=== PATIENT | female | born 2000 | race Caucasian/White ===

== ENCOUNTER 2019-11-13 18:48 | Emergency (ER) | payer OTHER ==
[2019-11-13] MEDS ORDERED: ACETAMINOPHEN 500 MG TAB ONE (19:10)
[2019-11-13] MEDS ORDERED: METOCLOPRAMIDE INJ 10MG/2ML VIAL (J2765 PER 1) ONE (19:10)
[2019-12-29 02:30] LABS: BASO % 0.3 % (0.0-1.0); EOS % 0.1 % (0.0-3.0); HEMATOCRIT 45.4 % (36.0-47.0); LYMPH # 1.8 10^3/uL (1.5-5.0); MEAN CORPUSCULAR HEMOGLOBIN 27.7 pg (27.0-33.0); MEAN CORPUSCULAR VOLUME 83.8 fl (80.0-96.0); MONO # 0.3 10^3/uL (0.0-0.8); MONO % 4.5 % (0.0-5.0); NEUTROPHILS # 5.5 10^3/uL (1.5-8.5); PLATELET COUNT, AUTOMATED 254 10^3/uL (150-450); RED BLOOD COUNT 5.42 10^6/uL (4.00-5.40); WHITE BLOOD COUNT 7.6 10^3/uL (4.0-10.0)
[2020-02-06 12:56] LABS: BLOOD UREA NITROGEN 9 MG/DL (7-18); CALCIUM LEVEL 9.5 MG/DL (8.5-10.1); CARBON DIOXIDE LEVEL 26 MEQ/L (21-32); CHLORIDE LEVEL 104 MEQ/L (98-107); GLOMERULAR FILTRATION RATE > 60.0 (>60); GLUCOSE, FASTING 75 MG/DL (70-100); HCG, SERUM QUANTITATIVE 186573 MIU/ML; SODIUM LEVEL 138 MEQ/L (136-145)
== END 2019-11-13 21:20 | disposition home or self-care (01) ==
LOC: M ED 18:48
DX: O21.9 Vomiting of pregnancy, unspecified (principal); O26.891 Other specified pregnancy related conditions, first trimester; R10.2 Pelvic and perineal pain; Z3A.00 Weeks of gestation of pregnancy not specified; Z88.2 Allergy status to sulfonamides
CPT/HCPCS: 80048; 81001; 84702; 85025; 96374; 99284; J2765

== ENCOUNTER → 2020-02-03 | Outpatient (CLI) | payer OTHER ==
--- NOTE | 2020-02-03 13:40 | REP ---
INDICATION: ANATOMY. TECHNIQUE: Real-time sonographic evaluation of the gravid uterus performed. FINDINGS: There is a living intrauterine twin gestation, diamniotic dichorionic. Estimated gestational age is19 weeks 3 days, EDC 06/26/2020. Today's measurements indicate appropriate concordant growth. Closed cervical length is measured at 4.2 cm. Fetus a: Presentation: Variable, on the left Placenta posterior, grade 1, without evidence of placenta previa. heart rate is recorded at 149 beats per minute. Amniotic fluid is subjectively normal. Biometry chart: BPD: 49 mm, 20 weeks 5 days, 84th percentile. HC: 177 mm, 20 weeks 1 days, 73rd percentile AC: 149 mm, 20 weeks 1 days, 66th percentile Femur length: 33 mm, 20 weeks 3 days, 77th percentile HC to AC ratio: 1.19, normal range 1.06-1.25. Estimated weight: 345g, 90th percentile. anatomy: Cranium: Grossly normal Lateral Ventricles/Choroid Plexus: Grossly normal Posterior Fossa/Cerebellum: Grossly normal Nose/lips/profile: Grossly normal Four chamber heart: Grossly normal, echogenic focus in right ventricle likely related to chordae tendineae a or moderator band. Right ventricular outflow tract: Grossly normal Left ventricular outflow tract: Grossly normal Left-sided stomach: Grossly normal Kidneys: Grossly normal Bladder: Grossly normal Cord Insertion: Grossly normal 3 vessel cord: Grossly normal Spine: Grossly normal Fetus b: Presentation: Variable, on the right. Placenta anterior and fundal, grade 1, without evidence of placenta previa. heart rate is recorded at 152 beats per minute. Amniotic fluid is subjectively normal. Biometry chart: BPD: 47 mm, 20 weeks 0 days, 67th percentile. HC: 173 mm, 19 weeks 6 days, 63rd percentile AC: 153 mm, 20 weeks 4 days, 74th percentile Femur length: 33 mm, 20 weeks 3 days, 75th percentile HC to AC ratio: 1.13, normal range 1.06-1.25. Estimated weight: 350g, over 97th percentile. anatomy: Cranium: Grossly normal Lateral Ventricles/Choroid Plexus: Grossly normal Posterior Fossa/Cerebellum: Grossly normal Nose/lips/profile: Grossly normal Four chamber heart: Grossly normal Right ventricular outflow tract: Grossly normal Left ventricular outflow tract: Grossly normal Left-sided stomach: Grossly normal Kidneys: Grossly normal Bladder: Grossly normal Cord Insertion: Grossly normal 3 vessel cord: Grossly normal Spine: Grossly normal IMPRESSION: Viable intrauterine twin gestation as above. <Electronically signed by Reggie Aguayo > 02/03/20 [id number]
== END ==
LOC: M WHC 10:02
PROVIDERS: ATTEND Advanced Practice Midwife
DX: O30.042 Twin pregnancy, dichorionic/diamniotic, second trimester (principal); Z3A.19 19 weeks gestation of pregnancy
CPT/HCPCS: 76811; 76812; G0463

== ENCOUNTER → 2020-02-03 | Outpatient (REF) | payer OTHER ==
[2020-02-03 15:40] LABS: HEMATOCRIT 33.9 % (36.0-47.0); HEMOGLOBIN 10.8 g/dl (12.0-15.5); MEAN CORPUSCULAR HEMOGLOBIN 27.7 pg (27.0-33.0); MEAN CORPUSCULAR HGB CONC 31.9 g/dl (32.0-36.5); MEAN CORPUSCULAR VOLUME 86.9 fl (80.0-96.0); PLATELET COUNT, AUTOMATED 238 10^3/uL (150-450); WHITE BLOOD COUNT 6.3 10^3/uL (4.0-10.0)
[2020-02-03 22:01] LABS: HEPATITIS C VIRUS ABY INDEX 0.1 INDEX (<0.8); HIV 1&2 SCREEN CENTAUR NEGATIVE (NEGATIVE)
== END ==
LOC: M PLALAB 12:34
PROVIDERS: ATTEND Advanced Practice Midwife
DX: O30.092 Twin pregnancy, unable to determine number of placenta and number of amniotic sacs, second trimester (principal); Z3A.00 Weeks of gestation of pregnancy not specified

== ENCOUNTER → 2020-03-03 | Outpatient (REF) | payer OTHER | LOC: M SFHCWAGY 17:02 | PROVIDERS: ATTEND Advanced Practice Midwife | DX: O30.042 Twin pregnancy, dichorionic/diamniotic, second trimester (principal) ==

== ENCOUNTER → 2020-03-04 | Outpatient (REF) | payer OTHER ==
[2020-03-04 17:56] LABS: HEMATOCRIT 32.7 % (36.0-47.0); HEMOGLOBIN 10.2 g/dl (12.0-15.5); MEAN CORPUSCULAR HEMOGLOBIN 26.6 pg (27.0-33.0); MEAN CORPUSCULAR HGB CONC 31.2 g/dl (32.0-36.5); MEAN CORPUSCULAR VOLUME 85.4 fl (80.0-96.0); PLATELET COUNT, AUTOMATED 239 10^3/uL (150-450); RED BLOOD COUNT 3.83 10^6/uL (4.00-5.40)
== END ==
LOC: M PLALAB 15:42
PROVIDERS: ATTEND Advanced Practice Midwife
DX: O30.042 Twin pregnancy, dichorionic/diamniotic, second trimester (principal)

== ENCOUNTER → 2020-04-07 | Outpatient (REF) | payer OTHER | LOC: M PLALAB 12:01 | PROVIDERS: ATTEND Advanced Practice Midwife | DX: O30.042 Twin pregnancy, dichorionic/diamniotic, second trimester (principal) ==

== ENCOUNTER → 2020-04-14 | Outpatient (CLI) | payer OTHER | LOC: M WHC 13:55 | PROVIDERS: ATTEND Advanced Practice Midwife | DX: O30.042 Twin pregnancy, dichorionic/diamniotic, second trimester (principal) ==

== ENCOUNTER → 2020-04-22 | Outpatient (CLI) | payer OTHER ==
[~2020-04-22] MED LIST: PRENTAB9 PO
== END ==
LOC: M WHC 15:05
PROVIDERS: ATTEND Obstetrics & Gynecology
DX: Z34.83 Encounter for supervision of other normal pregnancy, third trimester (principal); Z3A.30 30 weeks gestation of pregnancy

== ENCOUNTER → 2020-04-28 | Outpatient (CLI) | payer OTHER ==
[~2020-04-28] MED LIST changes: +DOK1CAP7 PO; +FERR325T18 PO; +IBUP80TA PO; +PERCOCET PO
--- NOTE | 2020-04-29 05:55 | REP ---
INDICATION: TWIN ANATOMY,BPP COMPARISON: 04/14/2020 TECHNIQUE: Transabdominal obstetrical ultrasound with color Doppler evaluation. FINDINGS: Examination demonstrates advanced twin gestation. Cervix measures 3.0 cm in length and appears closed. Gestational age by LMP at 31 weeks 4 days with estimated date of delivery 06/26/2020. TWIN A: Twin A identified in cephalic presentation along the maternal left side. Placenta is noted posterior and grade grade 2 without evidence for placenta previa or abruption. motion is appreciated. Amniotic fluid volume is normal and the deepest pocket measures 6.0 cm. FHR equals 153 beats per minute. Biophysical profile score: 8/8 Umbilical artery 1 SD ratio: 2.27 (1.86-3.91) TWIN B: Twin B identified in breech presentation along the maternal right side. Placenta is noted anterior/fundal and grade grade 2 without evidence for placenta previa or abruption. motion is appreciated. Amniotic fluid volume is normal and the deepest pocket measures 6.3 cm. FHR equals 149 beats per minute. Biophysical profile score: 8/8 Umbilical artery 1 SD ratio: 2.43 (1.86-3.91) IMPRESSION: Normal biophysical profile score and amniotic fluid volume for both twins. <Electronically signed by Vladimir Fields > 04/29/20 0551
== END ==
LOC: M WHC 14:54
PROVIDERS: ATTEND Obstetrics & Gynecology
DX: O30.043 Twin pregnancy, dichorionic/diamniotic, third trimester (principal); O32.1XX2 Maternal care for breech presentation, fetus 2; Z3A.31 31 weeks gestation of pregnancy
CPT/HCPCS: 76812; 76818; G0463

== ENCOUNTER → 2020-04-30 | Outpatient (CLI) | payer OTHER ==
[~2020-04-30] MED LIST changes: -DOK1CAP7 PO; -FERR325T18 PO; -IBUP80TA PO; -PERCOCET PO
== END ==
LOC: M LAB 07:58
PROVIDERS: ATTEND Obstetrics & Gynecology
DX: O30.043 Twin pregnancy, dichorionic/diamniotic, third trimester (principal); O99.810 Abnormal glucose complicating pregnancy; Z3A.00 Weeks of gestation of pregnancy not specified

== ENCOUNTER → 2020-05-02 | Outpatient (CLI) | payer OTHER ==
[~2020-05-02] VITALS: Ht 165.1 cm; Wt 94.4 kg
[2020-05-02 14:36] VITALS: BP 128/68
--- NOTE | 2020-05-02 15:49 | IPNPDOC ---
Obstetrical Progress Note Date of Service May 02, 2020 Subjective 19 yo at 32 1/7 weeks with di-di twins presents with no movement for two days. No pain. Pt had normal BPP on 04/28/2020. Objective Vital Signs Date Time Temp Pulse Resp B/P (MAP) Pulse Ox O2 Delivery O2 Flow Rate FiO2 05/02/20 14:36 97.3 105 20 128/68 (88) Assessment Variability: Moderate Accelerations: Positive Decelerations: None Heart Rate Tracing: Category I Tocometer Contractions: No Assessment and Plan Age: 19 : 2 Term: 1 Pre-term: 0 Abortions: 0 Livin Status: Reassuring (x 2) Additional Comments Transabdominal ultrasound at bedside: Good movement observed for both twins. Pt not able to perceive movements. normal fluid around both twins. good heart rates noted for both twins. A/P 19 yo at 32 1/7 with di-di twins, reassuring testing Follow up in the office on 05/04/2020 as scheduled. Plan weekly BPP's for antepartum testing JESSICA NAVARRO MD May 02, 2020 15:49
== END ==
LOC: M LDO 14:03
PROVIDERS: ATTEND Specialist
DX: O30.043 Twin pregnancy, dichorionic/diamniotic, third trimester (principal); O36.8130 Decreased fetal movements, third trimester, not applicable or unspecified; Z3A.32 32 weeks gestation of pregnancy
CPT/HCPCS: 59025; 76815; G0378; G0463

== ENCOUNTER → 2020-05-07 | Outpatient (CLI) | payer OTHER ==
[~2020-05-07] MED LIST changes: +DOK1CAP7 PO; +FERR325T18 PO; +IBUP80TA PO; +PERCOCET PO
--- NOTE | 2020-05-09 07:29 | REP ---
INDICATION: BPP - TWINS COMPARISON: 04/28/2020 TECHNIQUE: Transabdominal obstetrical ultrasound with color Doppler evaluation. FINDINGS: Examination demonstrates advanced live intrauterine twin . Gestational age by LMP 32 weeks 6 days with estimated date of delivery 06/26/2020. Cervix appears closed. TWIN A: Cephalic presentation towards left side of the uterus. heart rate equals 133 beats per minute. Placenta noted posteriorly and grade 3. Amniotic fluid volume deepest pocket: 4.9 cm Biophysical profile score: 8/8 Umbilical artery 1 SD ratio: 3.00 (1.80-3.78) Umbilical artery 2 SD ratio: 2.89 TWIN B: Breech presentation towards right side of the uterus. heart rate equals 138 beats per minute. Placenta noted anterofundally and grade 3. Amniotic fluid volume deepest pocket: 5.4 Biophysical profile score: 8/8 Umbilical artery 1 SD ratio: 3.03 (1.80-3.78) Umbilical artery 2 SD ratio: 3.15 IMPRESSION: Twin gestation demonstrating normal biophysical profile scores, amniotic fluid volumes and umbilical cord SD ratios. <Electronically signed by Vladimir Fields > 05/09/20 0725
== END ==
LOC: M WHC 07:48
PROVIDERS: ATTEND Advanced Practice Midwife
DX: O99.013 Anemia complicating pregnancy, third trimester (principal); Z3A.32 32 weeks gestation of pregnancy

== ENCOUNTER → 2020-05-17 | Outpatient (CLI) | payer OTHER ==
[~2020-05-17] MED LIST changes: -DOK1CAP7 PO; -FERR325T18 PO; -IBUP80TA PO; -PERCOCET PO
--- NOTE | 2020-05-17 11:40 | REP ---
INDICATION: TWIN GESTATION,GROWTH,BPP. COMPARISON: Comparison sonography 07 May 2020.. TECHNIQUE: Transabdominal obstetric sonography is performed. FINDINGS: Transabdominal scanning demonstrates a living dichorionic diamniotic twin intrauterine gestation. Fetus a is cephalic along the maternal left with heart rate recorded at 144 beats per minute. Posterior grade 3 placenta without evidence of previa. Three-vessel cord is seen. Amniotic fluid is subjectively normal. Biophysical profile score is 8 out of a possible 8. Deepest pocket of amniotic fluid is 5.9 cm. SD ratio in the umbilical cord artery by Doppler is normal at 2.66. Biometry chart fetus a: BPD 8.7 cm, 35 weeks 0 days Head circumference 31.6 cm, 35 weeks 3 days Abdominal circumference 32.5 cm, 36 weeks 3 days Femur length 6.7 cm, 34 weeks 3 days Humeral length 6.1 cm, 35 weeks 3 days HC AC ratio normal 1.0 Cephalic index normal 0.77 Estimated weight 2729 g, 6 lb 0 oz, 82nd percentile for 34 weeks 2 days Fetus B is breech, along the maternal right with heart rate 142 beats per minute. A fundal grade 3 placenta is seen without evidence of previa. Amniotic fluid is subjectively normal. The deepest pocket of amniotic fluid surrounding fetus B is 7.8 cm. Three-vessel umbilical cord is seen. Biophysical profile score is 8 out of a possible 8. SD ratio in the umbilical cord artery by Doppler is normal at 2.80. Biometry chart fetus B: BPD 8.4 cm, 34 weeks 0 days Head circumference 30.6 cm, 34 weeks 0 days Abdominal circumference 29.6 cm, 33 weeks 4 days Femur length 6.8 cm, 34 weeks 6 days Humeral length 5.9 cm, 34 weeks 1 day HC AC ratio normal 1.03 Cephalic index normal 0.78 Estimated weight 2333 g, 5 lb 2 oz, 36 percentile for 34 weeks 2 days. IMPRESSION: Viable twin intrauterine gestation at 34 weeks 2 days by today's previous sonographic criteria. XIOMY by today's sonography June 26, 2020. No complication identified. <Electronically signed by Dandre Leija > 05/17/20 [id number]
== END ==
LOC: M WHC 09:46
PROVIDERS: ATTEND Advanced Practice Midwife
DX: O30.043 Twin pregnancy, dichorionic/diamniotic, third trimester (principal); O32.1XX2 Maternal care for breech presentation, fetus 2; Z3A.34 34 weeks gestation of pregnancy

== ENCOUNTER → 2020-05-24 | Outpatient (CLI) | payer OTHER ==
[~2020-05-24] MED LIST changes: +DOK1CAP7 PO; +FERR325T18 PO; +IBUP80TA PO; +PERCOCET PO
--- NOTE | 2020-05-24 15:57 | REP ---
INDICATION: TWIN GESTATION,GROWTH,BPP. Thirty weeks gestation. Biophysical profile. XIOMY by prior sonography 26 June 2020 (35 week 2 day expected gestational estimate. COMPARISON: Comparison study May 17, 2020. TECHNIQUE: Transabdominal obstetric sonography. Limited scan. FINDINGS: A twin intrauterine gestation is again seen. Fetus a is cephalic along the maternal left side, heart rate for twin a is 146 beats per minute. A posterior grade 3 placenta is seen without evidence of previa. Maximum vertical pocket of amniotic fluid is 6.9 cm. Amniotic fluid is felt to be subjectively normal. Biophysical profile score is 8 out of a possible 8. SD ratio in the umbilical cord artery by Doppler is normal for twin a at 2.33. Fetus B is breech along the maternal right. heart rate 152 beats per minute. A fundal grade 3 placenta is seen without evidence of previa. Amniotic fluid is subjectively normal. MVP 6.8 cm. Biophysical profile score 8 out of a possible 8. SD ratio in the umbilical cord artery by Doppler normal 2.26. Closed cervical length view transabdominally is 3.7 cm. IMPRESSION: Limited scanning as above. Twin intrauterine gestation. Biophysical profile score 8 out of a possible 8 for both fetus a and fetus B. <Electronically signed by Dandre Leija > 05/24/20 [id number]
== END ==
LOC: M WHC 09:56
PROVIDERS: ATTEND Advanced Practice Midwife
DX: O30.093 Twin pregnancy, unable to determine number of placenta and number of amniotic sacs, third trimester (principal); Z3A.35 35 weeks gestation of pregnancy

== ENCOUNTER → 2020-05-25 | Outpatient (REF) | payer OTHER ==
[~2020-05-25] MED LIST changes: -DOK1CAP7 PO; -FERR325T18 PO; -IBUP80TA PO; -PERCOCET PO
== END ==
LOC: M SFHCWAGY 13:16
PROVIDERS: ATTEND Advanced Practice Midwife
DX: O30.043 Twin pregnancy, dichorionic/diamniotic, third trimester (principal)

== ENCOUNTER 2020-05-28 04:03 | Inpatient (IN) | payer OTHER ==
[2020-05-28] VITALS (15 sets, daily range): BP systolic 106–135; BP diastolic 54–83
[~2020-05-28] VITALS: Ht 165.1 cm; Wt 100.4 kg
[2020-05-28] MEDS ORDERED: ceFAZolin 2 GM/D5W 50 ML IV BAG (J0690 PER 500MG) As Ordered ONE (04:24)
[2020-05-28] MEDS ORDERED: MORPHINE PRES-FREE INJ 10 MG/10 ML VIAL (J2274) As Ordered ONE (04:24)
[2020-05-28] MEDS ORDERED: BICITRA 30ML SOLN UDC As Ordered ONE (04:24)
[2020-05-28] MEDS ORDERED: AZITHROMYCIN INJ 500MG VIAL (J0456 PER 500MG) As Ordered ONE (04:24)
[2020-05-28] MEDS ORDERED: AZITHROMYCIN INJ 500 MG, VIAL MATE ADAPTER 1 EACH in D5W 250 ML IV ONE (04:25)
[2020-05-28] MEDS ORDERED: BICITRA 30ML SOLN UDC PO ONE (04:25)
[2020-05-28] MEDS ORDERED: LACTATED RINGER'S 1000 ML IV STA (04:25)
[2020-05-28] MEDS ORDERED: ceFAZolin SOD 2 GM in IV 1 EA IV ONE (04:25)
--- NOTE | 2020-05-28 04:25 | HPEPDOC ---
Obstetrical History & Physical General Date of Admission May 28, 2020 at 04:14 History of Present Illness 19-year-old G2, P1001 at 35+6 weeks gestation with a Di/Di twin . Presents with frequent, painful uterine contractions over the past several hours with large loss of fluid around 0315 this AM. Denies vaginal bleeding. Reports regular movement x2. ROS: no GEE, cp, sob, fever/chills/nausea/vomiting. course: Di/Di twin gestation (spontaneous) Iron def anemia Breech presentation of Twin B. PMH: none SH: none Meds: vitamin, FeSO4 All: NKDA BUCKET HOOKER: No STI or dysplasia OB: G1, term ; 40 weeks uncomplicated (8lbs 13oz). G2, current Sochx: No tobacco, alcohol or drug use FamHx: none reported labs: Blood type A+, antibody screen negative, HepBsAg neg, HIV neg, rubella immune, Hep C antibody negative, RPR nonreactive, CT/GC neg, urine culture negative, negative GDM screen, GBS unknown imaging: no anomalies or placental abnormalities Past Medical History Allergies Coded Allergies: No Known Allergies (Unverified , 05/02/20) Medications Scheduled No.137/Iron/Folic Acd ( Vitamin Tablet) 1 Each Tablet, 1 TAB PO DAILY Physical Examination Physical Examination GENERAL: Alert and oriented times three. BREAST: . ABDOMEN: Gravid and non-tender to touch. FETUS: Is vertex (VTX) by sterile vaginal examination (SVE), fetus is vertex (VTX) by Abhilash. HEART RATE: Regular rate and rhythm. LUNGS: Clear to auscultation (CTA). EXTREMITIES: No edema. No clonus. SVE: 5cm, 100%, 0 station, grossly ruptured EFM: Cat I FHR x both twins Gloster: ctxs every 2-5min. US,new: cephalic, breech Laboratory Data 24H LABS Laboratory Tests 2 05/28/20 04:18: Serology Scanned Report Hepatitis B Testing Assessment/Plan Assessment 19yo at 35+6 weeks EGA. Di/Di twin gestation. Active labor with ROM. malpresentation of Twin B. Plan Routine admission labs/orders Mode of delivery plan: primary low transverse section Prepare for OR; L&D staff, anesthesia,peds notified ELISABETH ARTHUR DO May 28, 2020 04:25
[2020-05-28] MEDS ORDERED: OXYTOCIN 30 UNITS IN 0.9% NaCl 500ML IV BAG (J2590) As Ordered ONE (04:26)
[2020-05-28] MEDS ORDERED: VIAL MATE ADAPTER XX ONE ×2 (04:28→04:29)
[2020-05-28] MEDS: LR 1,000 ML IV SCH ×3 (04:30→22:40)
[2020-05-28] MEDS ORDERED: diphenhydrAMINE 50MG/ML VIAL (J1200) IV PRN (04:41)
[2020-05-28] MEDS ORDERED: NALOXONE INJ 0.4MG/1ML VIAL (J2310 PER 1MG) IV PRN ×2 (04:41)
[2020-05-28] MEDS ORDERED: METOCLOPRAMIDE INJ 10MG/2ML VIAL (J2765 PER 1) IV PRN (04:41)
[2020-05-28] MEDS ORDERED: NALBUPHINE HCL 10 MG/ML AMP (J2300) IV PRN (04:41)
[2020-05-28] MEDS ORDERED: ONDANSETRON 4MG/2ML VIAL IV PRN ×3 (04:41→05:55)
[2020-05-28 04:44] LABS: HEMATOCRIT 26.5 % (36.0-47.0); HEMOGLOBIN 7.6 g/dl (12.0-15.5); MEAN CORPUSCULAR HEMOGLOBIN 20.8 pg (27.0-33.0); MEAN CORPUSCULAR HGB CONC 28.7 g/dl (32.0-36.5); MEAN CORPUSCULAR VOLUME 72.6 fl (80.0-96.0); PLATELET COUNT, AUTOMATED 218 10^3/uL (150-450); RED BLOOD COUNT 3.65 10^6/uL (4.00-5.40); WHITE BLOOD COUNT 7.3 10^3/uL (4.0-10.0)
[2020-05-28] MEDS ORDERED: OXYTOCIN INJ 10 UNITS/ML VIAL (J2590) As Ordered ONE (05:09)
[2020-05-28] MEDS ORDERED: ONDANSETRON 4MG/2ML VIAL As Ordered ONE ×2 (05:09→05:55)
[2020-05-28] MEDS ORDERED: KETOROLAC 60MG 2ML VIAL As Ordered ONE (05:10)
[2020-05-28] MEDS ORDERED: dexameTHASONE 4 MG/ML 1ML VIAL (J1100 PER 1MG) As Ordered ONE (05:10)
--- OUTSIDE RECORDS SUMMARY | 2020-05-28 05:28 | CCD ---
Author Author [facility] Organization [facility] Address Unknown Phone Unavailable Care Team Providers Care Field Agronomist Name Role Phone Deborah Godfrey Unavailable PROBLEMS Type Condition ICD9-CM Code NFP20-OD Code Onset Dates Condition S tatus W/U Status Risk SNOMED Code Notes Problem Anemia affecting first O99.019 Active confirmed 17988762 Problem Anemia complicating , third trimester O99 .013 Active confirmed 58321443 Problem Supervision of other normal Z34.80 Ac tive confirm [id number] ALLERGIES No Known Allergies ENCOUNTERS from 1998 to 2020-05-11 Encounter Location Date Provider Diagnosis [facility] [address] [place] [phone] May, Deborah Godfrey Twin , dichorionic/diamniotic, third trimester O30.043 and 32 weeks gestation of Z3A.32 IMMUNIZATIONS No Information SOCIAL HISTORY Tobacco Use: Social History Observation Description Date Details (start date - stop date) Current Smoker Sex Assigned At : Social History Observation Description Sex Assigned At Unknown Sexual Hx: Question Answer Notes Had sex in the last 12 months (vaginal, oral, or anal)? Yes LMP: 09/20/2019 Have you ever had an STD? No with Men only Use protection? No Alcohol Screening: Question Answer Notes Did you have a drink containing alcohol in the past year? No Points 0 Interpretation Negative Tobacco Use: Question Answer Notes Are you a: current smoker Vape Patient counseled on the dangers of tobacco use and urged to quit: 01/06/2020 Are you interested in quitting? Ready to quit Counseled the patient on tobacco use, cessation provided 09/2019 REASON FOR REFERRAL No Information VITAL SIGNS Weight 208.8 lbs May, Height 66 in May, BMI 33.701 kg/m2 May, Blood pressure systolic 122 mm Hg May, Blood pressure diastolic 74 mm Hg May, MEDICATIONS Medication SIG (Take, Route, Frequency, Duration) Notes Start Da te End Date Status Ferrous Sulfate 325 (65 Fe) MG 1 tablet Orally Once a day for 30 day(s) Jan, Not-Taking 27-1 MG 1 tablet Orally Once a day Active PROCEDURES No Information RESULTS No Results REASON FOR VISIT 1WK PN / Twins Goals Section No Information Health Concerns No Information MEDICAL EQUIPMENT No Information MENTAL STATUS No Information FUNCTIONAL STATUS No Information ASSESSMENTS Encounter Date Diagnosis Assessment Notes Treatment Notes Treatm ent Clinical Notes May, Twin , dichorionic/ diamniotic, third trimester (ICD-10 - O30.043) May, 32 weeks gestation of (ICD-10 - Z3A.32 ) PLAN OF TREATMENT Next Appt Details 1 Week Reason:return obaicha [facility] 2020-05-18 03:00:00 PM, [address] [place], [address], Follow Up:1 Weekreturn aicha zavala Insurance Providers Payer Name Payer Address Payer Phone Insured Name Patient Relati onship to Insured Coverage Start Date Coverage End Date [place] [phone] M[employer]RAY PINK self
--- OUTSIDE RECORDS SUMMARY | 2020-05-28 05:28 | CCD ---
Author Author [facility] Organization [facility] Address Unknown Phone Unavailable Care Team Providers Care Manager Pmo Name Role Phone Deborah Godfrey Unavailable PROBLEMS Type Condition ICD9-CM Code GSR96-GC Code Onset Dates Condition S tatus W/U Status Risk SNOMED Code Notes Problem Anemia affecting first O99.019 Active confirmed 91633652 Problem Anemia complicating , third trimester O99 .013 Active confirmed 72283477 Problem Supervision of other normal Z34.80 Ac tive confirm [id number] ALLERGIES No Known Allergies ENCOUNTERS from 1998 to 2020-05-22 Encounter Location Date Provider Diagnosis [facility] [address] [place] [phone] 16 May, 2020 Deborahtoño Godfrey Twin , dichorionic/diamniotic, third trimester O30.043 ; 34 weeks gestation of Z3A.34 and Encounter for immunization Z23 IMMUNIZATIONS Vaccine Route Administration Date Status TDAP 0.5mL (Boostrix) IM Intramuscular May 18, 2020 Administe red SOCIAL HISTORY Tobacco Use: Social History Observation [...] FOR REFERRAL No Information VITAL SIGNS Weight 212.6 lbs May, Weight-kg 96.43 kg May, Height 66 in May, BMI 34.315 kg/m2 May, Blood pressure systolic 120 mm Hg May, Blood pressure diastolic 76 mm Hg May, MEDICATIONS Medication SIG (Take, Route, Frequency, Duration) Notes Start Da te End Date Status Ferrous Sulfate 325 (65 Fe) MG 1 tablet Orally Once a day for 30 day(s) Jan, Not-Taking 27-1 MG 1 tablet Orally Once a day Active PROCEDURES from 1998 to 2020-05-22 Procedure Date Ordered Result Body Site Imm: Boostrix 0.5mL IM TDAP 2020-05-18 N/A RESULTS No Results REASON FOR VISIT 1WK PN/TWINS Goals Section No Information Health Concerns No Information MEDICAL EQUIPMENT No Information MENTAL STATUS No Information FUNCTIONAL STATUS No Information ASSESSMENTS Encounter Date Diagnosis Assessment Notes Treatment Notes Treatm ent Clinical Notes May, Twin , dichorionic/ diamniotic, third trimester (ICD-10 - O30.043) May, 34 weeks gestation of (ICD-10 - Z3A.34 ) May, Encounter for immunization (ICD-10 - Z23) PLAN OF TREATMENT Next Appt Details 1 Week Reason:return ob Provider Name:Deborah Godfrey, 2020-05-25 10:00:00 AM, [address] [place], [address], Follow Up:1 Weekreturn ob Insurance Providers Payer Name Payer Address Payer Phone Insured Name Patient Relati onship to Insured Coverage Start Date Coverage End Date [place] [phone] MURRAY PINK self
--- OUTSIDE RECORDS SUMMARY | 2020-05-28 05:28 | CCD ---
Author Author [facility] Organization [facility] Address Unknown Phone Unavailable Care Team Providers Care Statistics Professor Name Role Phone Vaishali Meneses Unavailable PROBLEMS Type Condition ICD9-CM Code [id number] Code Onset Dates Condition S tatus W/U Status Risk SNOMED Code Notes Problem Anemia affecting first O99.019 Active confirmed 92206564 Problem Anemia complicating , third trimester O99 .013 Active confirmed 43925213 Problem Supervision of other normal Z34.80 Ac tive confirm [id number] ALLERGIES No Known Allergies ENCOUNTERS from 1998 to 2020-05-03 Encounter Location Date Provider Diagnosis [facility] [address] [place] [phone] Apr, Vaishali Meneses 30 weeks gestation o f Z3A.30 ; Dichorionic diamniotic twin gestation O30.049 ; Anemia complicating , third trimester O99.013 and Elevated glucose R73.09 IMMUNIZATIONS No Information SOCIAL HISTORY Tobacco Use: [...] FOR REFERRAL No Information VITAL SIGNS Weight 205 lbs Apr, Height 66 in Apr, BMI 33.088 kg/m2 Apr, Blood pressure systolic 118 mm Hg Apr, Blood pressure diastolic 78 mm Hg Apr, MEDICATIONS Medication SIG (Take, Route, Frequency, Duration) Notes Start Da te End Date Status Ferrous Sulfate 325 (65 Fe) MG 1 tablet Orally Once a day for 30 day(s) Jan, Not-Taking 27-1 MG 1 tablet Orally Once a day Active PROCEDURES No Information RESULTS No Results REASON FOR VISIT 1WK PN Goals Section No Information Health Concerns No Information MEDICAL EQUIPMENT No Information MENTAL STATUS No Information FUNCTIONAL STATUS No Information ASSESSMENTS Encounter Date Diagnosis Assessment Notes Treatment Notes Treatm ent Clinical Notes Apr, 30 weeks gestation of (ICD-10 - Z3A.30 ) Apr, Dichorionic diamniotic twin gestation (ICD-10 - O30.049) Apr, Anemia complicating , third tri mester (ICD-10 - O99.013) Apr, Elevated glucose (ICD-10 - R73.09) PLAN OF TREATMENT Treatment Notes Test Name Order Date [facility] BPP W/O NON STRESS TEST 2020-04-22 [facility] OB Multiple Gestation 2020-04-22 Next Appt Details 1 Week Reason:twins Provider Name:Deborah Godfrey, 2020-05-04 10:00:00 AM, [address] [place], [address], Follow Up:1 Weektwins Insurance Providers Payer Name Payer Address Payer Phone Insured Name Patient Relati onship to Insured Coverage Start Date Coverage End Date [place] [phone] MURRAY PIKN self
--- OUTSIDE RECORDS SUMMARY | 2020-05-28 05:29 | CCD ---
Author Author [facility] Organization [facility] Address Unknown Phone Unavailable Care Team Providers Care Engineer First Assistant Name Role Phone Kris Jones Unavailable PROBLEMS Type Condition ICD9-CM Code [id number] Code Onset Dates Condition S tatus SNOMED Code Notes Problem Anemia affecting first O99.019 Active 77577234 Problem Anemia complicating , third trimester O99 .013 Active 12267333 Problem Supervision of other normal Z34.80 Ac tive [id number] ALLERGIES No Known Allergies ENCOUNTERS from 1998 to 2020-04-30 Encounter Location Date Provider Diagnosis [facility] [address] [place] [phone] Apr, Kris Jones Dichorionic diamniot ic twin in third trimester O30.043 and 30 weeks gestation of Z3A.30 IMMUNIZATIONS No Information SOCIAL HISTORY Tobacco Use: [...] FOR REFERRAL No Information VITAL SIGNS Weight 201.4 lbs 15 Apr, 2021 Weight-kg 91.35 kg Apr, Height 66 in Apr, BMI 32.5 kg/m2 Apr, Blood pressure systolic 120 mm Hg Apr, Blood pressure diastolic 62 mm Hg Apr, MEDICATIONS Medication SIG (Take, Route, Frequency, Duration) Notes Start Da te End Date Status Ferrous Sulfate 325 (65 Fe) MG 1 tablet Orally Once a day for 30 day(s) Jan, Not-Taking 27-1 MG 1 tablet Orally Once a day Active PROCEDURES No Information RESULTS No Results REASON FOR VISIT 4 WK PN Goals Section No Information Health Concerns No Information MEDICAL EQUIPMENT No Information MENTAL STATUS No Information FUNCTIONAL STATUS No Information ASSESSMENTS Encounter Date Diagnosis Assessment Notes Treatment Notes Treatm ent Clinical Notes Apr, Dichorionic diamniotic twin in third trimester (ICD-10 - O30.043) Apr, 30 weeks gestation of (ICD-10 - Z3A.30 ) PLAN OF TREATMENT Next Appt Details Provider Name:Deborah Godfrey, 2020-05-04 10:00:00 AM, [address] [place], [address], Insurance Providers Payer Name Payer Address Payer Phone Insured Name Patient Relati onship to Insured Coverage Start Date Coverage End Date [address] [phone] M[employer]RAY PINK self
--- OUTSIDE RECORDS SUMMARY | 2020-05-28 05:29 | CCD ---
Author Author [facility] Organization [facility] Address Unknown Phone Unavailable Care Team Providers Care Aeroplane Pilot Name Role Phone Naty Bardales Unavailable PROBLEMS Type Condition ICD9-CM Code WQP15-AS Code Onset Dates Condition S tatus SNOMED Code Notes Problem Supervision of other normal Z34.80 Ac tive 012147094 Problem Anemia affecting first O99.019 Active 70082167 ALLERGIES No Known Allergies ENCOUNTERS from 1998 to 2020-04-11 Encounter Location Date Provider Diagnosis [facility] [address] [place] [phone] Mar, Naty Bardales Dichorionic diamniot ic twin in second trimester O30.042 ; Anemia affecting in second trimester O99.012 and 27 weeks gestation of Z3A.27 IMMUNIZATIONS No Information SOCIAL HISTORY Tobacco Use: [...] FOR REFERRAL No Information VITAL SIGNS Weight 199.2 lbs Mar, Height 66 in 31 Dec, 2020 BMI 32.152 kg/m2 Mar, Blood pressure systolic 112 mm Hg Mar, Blood pressure diastolic 70 mm Hg Mar, MEDICATIONS Medication SIG (Take, Route, Frequency, Duration) Notes Start Da te End Date Status 27-1 MG 1 tablet Orally Once a day Active Ferrous Sulfate 325 (65 Fe) MG 1 tablet Orally Once a day for 30 day(s) Jan, Not-Taking PROCEDURES No Information RESULTS No Results REASON FOR VISIT 4 WK PN Goals Section No Information Health Concerns No Information MEDICAL EQUIPMENT No Information MENTAL STATUS No Information FUNCTIONAL STATUS No Information ASSESSMENTS Encounter Date Diagnosis Assessment Notes Treatment Notes Treatm ent Clinical Notes Mar, Dichorionic diamniotic twin in second trimester (ICD-10 - O30.042) Mar, Anemia affecting in second tri mester (ICD-10 - O99.012) Mar, 27 weeks gestation of (ICD-10 - Z3A.27 ) PLAN OF TREATMENT Treatment Notes Test Name Order Date WW OBS LIMITED 2020-04-11 Next Appt Details 2 Weeks Reason:COB NST Provider Name:Pedro Sanford, 10:20:00 AM, [address] [place], [address], Follow Up:2 WeeksCOB NST Insurance Providers Payer Name Payer Address Payer Phone Insured Name Patient Relati onship to Insured Coverage Start Date Coverage End Date [place] [phone] MURRAY PINK self
--- OUTSIDE RECORDS SUMMARY | 2020-05-28 05:29 | CCD ---
Author Author [facility] em[facility] Organization [facility] ems Address Unknown Phone Unavailable Care Team Providers Care Digital Composer Name Role Phone Naty Bardales Unavailable PROBLEMS Type Condition ICD9-CM Code ICU74-FD Code Onset Dates Condition S tatus SNOMED Code Notes Problem Supervision of other normal Z34.80 Ac tive 644709820 Problem Anemia affecting first O99.019 Active [id number] ALLERGIES No Known Allergies ENCOUNTERS from 1998 to 2020-04-09 Encounter Location Date Provider Diagnosis [facility] [address] [place] [id number] Apr, Naty Bardales Dichorionic diamniot ic twin in third trimester O30.043 and Impaired glucose in , antepartum O99.810 IMMUNIZATIONS No Information SOCIAL HISTORY Tobacco Use: [...] REASON FOR REFERRAL No Information VITAL SIGNS No information MEDICATIONS Medication SIG (Take, Route, Frequency, Duration) Notes Start Da te End Date Status 27-1 MG 1 tablet Orally Once a day Active Ferrous Sulfate 325 (65 Fe) MG 1 tablet Orally Once a day for 30 day(s) Jan, Not-Taking PROCEDURES No Information RESULTS No Results REASON FOR VISIT failed 3 hour GTT Goals Section No Information Health Concerns No Information MEDICAL EQUIPMENT No Information MENTAL STATUS No Information FUNCTIONAL STATUS No Information ASSESSMENTS Encounter Date Diagnosis Assessment Notes Treatment Notes Treatm ent Clinical Notes Apr, Dichorionic diamniotic twin in third trimester (ICD-10 - O30.043) Apr, Impaired glucose in , antepartum (ICD-1 0 - O99.810) PLAN OF TREATMENT Treatment Notes Test Name Order Date GLUCOSE KANDY 3 HR GESTATIONAL 2020-04-09 Next Appt Details Provider Name:Pedro Sanford, 10:20:00 AM, [address] [place], [address], Insurance Providers Payer Name Payer Address Payer Phone Insured Name Patient Relati onship to Insured Coverage Start Date Coverage End Date [address] [phone] MURRAY PINK self
[2020-05-28] MEDS ORDERED: PHENYLephrine 500MCG 5ML (100MCG/ML) SYRINGE As Ordered ONE (05:30)
[2020-05-28] MEDS ORDERED: ePHEDrine SULFATE 25 MG/5 ML(5MG/ML) SYRINGE As Ordered ONE (05:30)
--- OUTSIDE RECORDS SUMMARY | 2020-05-28 05:30 | CCD ---
Author Author [facility] Address Unknown Phone Unavailable Support Name Relationship Address Phone UE Next Of Kin Unknown Unavailable KAPIL PINK Next Of Kin [phone] [place] [address] KAPIL PINK E[place] [address] [place] [address] Unavailable Re-disclosure Warning The records that you are about to access may contain information from federally-assisted alcohol or drug abuse programs. If such information is present, then the following federally mandated warning applies: This information has been disclosed to you from records protected by federal confidentiality rules (42 CFR part 2). The federal rules prohibit you from making any further disclosure of this information unless further disclosure is expressly permitted by the written consent of the person to whom it pertains or as otherwise permitted by 42 CFR part 2. A general authorization for the release of medical or other information is NOT sufficient for this purpose. The Federal rules restrict any use of the information to criminally investigate or prosecute any alcohol or drug abuse patient.The records that you are about to access may contain highly sensitive health information, the redisclosure of which is protected by Article 27-F of the [facility] Public Health law. If you continue you may have access to information: Regarding HIV / AIDS; Provided by facilities licensed or operated by the [facility] Office of Mental Health; or Provided by the [facility] Office for People With Developmental Disabilities. If such information is present, then the following [facility] mandated warning applies: This information has been disclosed to you from confidential records which are protected by state law. State law prohibits you from making any further disclosure of this information without the specific written consent of the person to whom it pertains, or as otherwise permitted by law. Any unauthorized further disclosure in violation of state law may result in a fine or [place] [facility] sentence or both. A general authorization for the release of medical or other information is NOT sufficient authorization for further disc losure. Encounters Encounter Providers Location Date Indications Data Source(s ) ([facility]) [facility] [address] [place] [address] 05/18/2020 12:00:00 AM EST eCW1 ([facility]) ([facility] CO[facility]) [facility] [address] [place] [address] 05/04/2020 12:00:00 AM EST eCW1 ([facility]) (WC COB) [facility] [address] [place] [address] 04/22/2020 12:00:00 AM EST eCW1 ([facility]) (WC COB) [facility] [address] [place] [address] 04/16/2020 12:00:00 AM EST eCW1 ([facility]) Unknown [address] [facility] [address] 04/07/2020 12:00:00 AM EST eCW1 ([facility]) ( COB) [facility] [address] [place] [address] 04/01/2020 12:00:00 AM EST eCW1 ([facility]) ( COB) [facility] [address] [place] [address] 03/03/2020 12:00:00 AM EST eCW1 ([facility]) Unknown [address] [facility] [address] 02/04/2020 12:00:00 AM EST eCW1 ([facility]) (WC COB) [facility] [address] [place] [address] 02/03/2020 12:00:00 AM EST eCW1 ([facility]) ( NEWOB) [facility] New OB Visit [address] [place] [address] 01/06/2020 12:00:00 AM EDT eCW1 ([facility]) Immunizations Vaccine Date Status Description Data Source(s) Tdap 05/18/2020 04:07:00 PM EST completed e 1 ([facility]) Medications Medication Brand Name Start Date Product Form Dose Route Admi nistrative Instructions Pharmacy Instructions Status Indications Reaction Description Data Source(s) ferrous sulfate 325 MG Oral Tablet Ferrous Sulfate 325 (65 Fe) MG Ferrous Sulfate 325 (65 Fe) MG 02/04/2020 12:00:00 AM EST 1.0 {tablet} suspended Ferrous Sulfate 325 (65 Fe) MG e 1 ([facility]) ferrous sulfate 325 MG Oral Tablet Ferrous Sulfate 325 (65 Fe) MG Ferrous Sulfate 325 (65 Fe) MG 02/04/2020 12:00:00 AM EST 1.0 {tablet} suspended Ferrous Sulfate 325 (65 Fe) MG e [facility] ([facility]) ferrous sulfate 325 MG Oral Tablet Ferrous Sulfate 325 (65 Fe) MG Ferrous Sulfate 325 (65 Fe) MG 02/04/2020 12:00:00 AM EST 1.0 {tablet} active Ferrous Sulfate 325 (65 Fe) MG [facility] ([facility]) ferrous sulfate 325 MG Oral Tablet Ferrous Sulfate 325 (65 Fe) MG Ferrous Sulfate 325 (65 Fe) MG 02/04/2020 12:00:00 AM EST 1.0 {tablet} suspended Ferrous Sulfate 325 (65 Fe) MG e [facility] ([facility]) ferrous sulfate 325 MG Oral Tablet Ferrous Sulfate 325 (65 Fe) MG Ferrous Sulfate 325 (65 Fe) MG 02/04/2020 12:00:00 AM EST 1.0 {tablet} suspended Ferrous Sulfate 325 (65 Fe) MG e [facility] ([facility]) ferrous sulfate 325 MG Oral Tablet Ferrous Sulfate 325 (65 Fe) MG Ferrous Sulfate 325 (65 Fe) MG 02/04/2020 12:00:00 AM EST 1.0 {tablet} suspended Ferrous Sulfate 325 (65 Fe) MG e [facility] ([facility]) ferrous sulfate 325 MG Oral Tablet Ferrous Sulfate 325 (65 Fe) MG Ferrous Sulfate 325 (65 Fe) MG 02/04/2020 12:00:00 AM EST 1.0 {tablet} active Ferrous Sulfate 325 (65 Fe) MG [facility] ([facility]) ferrous sulfate 325 MG Oral Tablet Ferrous Sulfate 325 (65 Fe) MG Ferrous Sulfate 325 (65 Fe) MG 02/04/2020 12:00:00 AM EST 1.0 {tablet} suspended Ferrous Sulfate 325 (65 Fe) MG e CW1 ([facility]) ferrous sulfate 325 MG Oral Tablet Ferrous Sulfate 325 (65 Fe) MG Ferrous Sulfate 325 (65 Fe) MG 02/04/2020 12:00:00 AM EST 1.0 {tablet} active Ferrous Sulfate 325 (65 Fe) MG eCW1 ([facility]) ferrous sulfate 325 MG Oral Tablet Ferrous Sulfate 325 (65 Fe) MG Ferrous Sulfate 325 (65 Fe) MG 02/04/2020 12:00:00 AM EST 1.0 {tablet} suspended Ferrous Sulfate 325 (65 Fe) MG e CW1 ([facility]) Insurance Providers Payer name Policy type / Coverage type Policy ID Covered alliance party ID Covered alliance party's relationship to poole Policy Poole Plan Information [facility] [id number] [facility] [id number] Problems, Conditions, and Diagnoses Code Display Name Description Problem Type Effective Dates Data Source(s) O99.013 Anemia in mother complicating , childbirth AND/OR puerperium Anemia complicating , third trimester Problem 021 12:00:00 AM EST eCW1 ([facility]) O99.019 Anemia of Anemia affecting first Raeann wilson 02/04/2020 12:00:00 AM EST eCW1 ([facility]) Z34.80 care Supervision of other normal Raeann wilson 01/06/2020 12:00:00 AM EDT eCW1 ([facility]) Surgeries/Procedures Procedure Description Date Indications Data Source(s) TDAP VACCINE 7/> YR IM 05/18/2020 12:00:00 AM EST eCW1 ([facility]) Results ID Date Data Source Type and Screen (D Rh Antibody Screen) 03/04/2020 12:00:00 A M EST eCW1 ([facility]) Name Value Range Interpretation Code Description Data Shira rce(s) Supporting Document(s) NEGATIVE AB SCREEN (INDIRECT COOMB S)VIS eCW1 ([facility]) A POSITIVE BLOOD TYPE W1 ([facility]) ID Date Data Source URINE CULTURE 03/03/2020 12:00:00 AM EST eCW1 ([facility]) Name Value Range Interpretation Code Description Data Shira rce(s) Supporting Document(s) URINE CULTURE eCW1 ([facility]) ID Date Data Source WWBC OBS COMPLETE US 02/10/2020 09:38:34 AM EST eCW1 ([facility]) Name Value Range Interpretation Code Description Data Shira rce(s) Supporting Document(s) WWBC OBS COMPLETE US eCW1 ([facility]) ID Date Data Source HBSAG 02/03/2020 12:00:00 AM EST eCW1 ([facility]) Name Value Range Interpretation Code Description Data Shira rce(s) Supporting Document(s) NEGATIVE NEGATIVE eCW1 (Counts include 234 beds at the [facility]) ID Date Data Source RUBELLA IMMUNE STATUS IgG 02/03/2020 12:00:00 AM EST eCW1 ([facility]) Name Value Range Interpretation Code Description Data Shira rce(s) Supporting Document(s) IMMUNE IMMUNE eCW1 (Counts include 234 beds at the [facility]) ID Date Data Source SYPHILIS ANTIBODY (RPR SCREEN) 02/03/2020 12:00:00 AM EST eC W1 ([facility]) Name Value Range Interpretation Code Description Data Shira rce(s) Supporting Document(s) NONREACTIVE NONREACTIVE eCW1 ([facility]) ID Date Data Source [id number] 02/03/2020 12:00:00 AM EST eCW1 ([facility]) Name Value Range Interpretation Code Description Data Shira rce(s) Supporting Document(s) eCW1 (Counts include 234 beds at the [facility]) ID Date Data Source HEPATITIS C ANTIBODY INDEX 02/03/2020 12:00:00 AM EST eCW1 ( [facility]) Name Value Range Interpretation Code Description Data Shira rce(s) Supporting Document(s) 0.1 <0.8 eCW1 (Counts include 234 beds at the [facility]) ID Date Data Source CBC - Complete Blood Count 02/03/2020 12:00:00 AM EST eCW1 ( [facility]) Name Value Range Interpretation Code Description Data Shira rce(s) Supporting Document(s) 6.3 4.0-10.0 eCW1 (Counts include 234 beds at the [facility]) 86.9 80.0-96.0 eCW1 (Counts include 234 beds at the [facility]) 33.9 36.0-47.0 eCW1 (Counts include 234 beds at the [facility]) 3.90 4.00-5.40 eCW1 (Counts include 234 beds at the [facility]) 10.8 12.0-15.5 eCW1 (Counts include 234 beds at the [facility]) 13.2 11.5-14.5 eCW1 (Counts include 234 beds at the [facility]) 238 150-450 eCW1 (Counts include 234 beds at the [facility]) 27.7 27.0-33.0 eCW1 (Counts include 234 beds at the [facility]) 31.9 32.0-36.5 eCW1 (Counts include 234 beds at the [facility]) ID Date Data Source Type and Screen Prenatal1 02/03/2020 12:00:00 AM EST eCW1 ([facility]) Name Value Range Interpretation Code Description Data Shira rce(s) Supporting Document(s) NEGATIVE eCW1 (Counts include 234 beds at the [facility]) Procedure Social History Code Duration Value Status Description Data Source(s ) Smoking 05/21/2020 12:00:00 AM EST Current Smoker completed Curre nt Smoker eCW1 ([facility]) Smoking 05/11/2020 12:00:00 AM EST Current Smoker completed Curre nt Smoker eCW1 ([facility]) Smoking 05/03/2020 12:00:00 AM EST Current Smoker completed Curre nt Smoker eCW1 ([facility]) Smoking 04/22/2020 12:00:00 AM EST Current Smoker completed Curre nt Smoker eCW1 ([facility]) Smoking 03/29/2020 12:00:00 AM EST Current Smoker completed Curre nt Smoker eCW1 ([facility]) Smoking 03/29/2020 12:00:00 AM EST Current Smoker completed Curre nt Smoker eCW1 ([facility]) Smoking 02/23/2020 12:00:00 AM EST Current Smoker completed Curre nt Smoker eCW1 ([facility]) Smoking 01/30/2020 12:00:00 AM EDT Current Smoker completed Curre nt Smoker eCW1 ([facility]) Smoking 01/30/2020 12:00:00 AM EDT Current Smoker completed Curre nt Smoker eCW1 ([facility]) Smoking 01/30/2020 12:00:00 AM EDT Current Smoker completed Curre nt Smoker eCW1 ([facility]) Vital Signs ID Date Data Source UNK Name Value Range Interpretation Code Description Data Source(s) Diastolic blood pressure 76 mm[Hg] 76 mm[Hg] eCW1 ([facility]) Systolic blood pressure 120 mm[Hg] 120 mm[Hg] e CW1 ([facility]) Body mass index (BMI) [Ratio] 34.315 kg/m2 34.3 15 kg/m2 [facility] ([facility]) Body height 66 [in_i] 66 [in_i] eCW1 ([facility]) Body weight 96.43 kg 96.43 kg W1 ([facility]) Body weight 212.6 [lb_av] 212.6 [lb_av] eCW1 ([facility]) Diastolic blood pressure 74 mm[Hg] 74 mm[Hg] eCW1 ([facility]) Systolic blood pressure 122 mm[Hg] 122 mm[Hg] e CW1 ([facility]) Body mass index (BMI) [Ratio] 33.701 kg/m2 33.7 01 kg/m2 eCW1 ([facility]) Body height 66 [in_i] 66 [in_i] eCW1 ([facility]) Body weight 208.8 [lb_av] 208.8 [lb_av] eCW1 ([facility]) Diastolic blood pressure 78 mm[Hg] 78 mm[Hg] eCW1 ([facility]) Systolic blood pressure 118 mm[Hg] 118 mm[Hg] e CW1 ([facility]) Body mass index (BMI) [Ratio] 33.088 kg/m2 33.0 88 kg/m2 W1 ([facility]) Body height 66 [in_i] 66 [in_i] eCW1 ([facility]) Body weight 205 [lb_av] 205 [lb_av] eCW1 ([facility]) Diastolic blood pressure 62 mm[Hg] 62 mm[Hg] eCW1 ([facility]) Systolic blood pressure 120 mm[Hg] 120 mm[Hg] e CW1 ([facility]) Body mass index (BMI) [Ratio] 32.5 kg/m2 32.5 k g/m2 eCW1 ([facility]) Body height 66 [in_i] 66 [in_i] eCW1 ([facility]) Body weight 91.35 kg 91.35 kg eCW1 ([facility]) Body weight 201.4 [lb_av] 201.4 [lb_av] eCW1 ([facility]) Diastolic blood pressure 70 mm[Hg] 70 mm[Hg] eCW1 ([facility]) Systolic blood pressure 112 mm[Hg] 112 mm[Hg] e CW1 ([facility]) Body mass index (BMI) [Ratio] 32.152 kg/m2 32.1 52 kg/m2 W1 ([facility]) Body height 66 [in_i] 66 [in_i] eCW1 ([facility]) Body weight 199.2 [lb_av] 199.2 [lb_av] eCW1 ([facility]) Diastolic blood pressure 78 mm[Hg] 78 mm[Hg] eCW1 ([facility]) Systolic blood pressure 128 mm[Hg] 128 mm[Hg] e CW1 ([facility]) Body mass index (BMI) [Ratio] 31.99 kg/m2 31.99 kg/m2 eCW1 ([facility]) Body height 66 [in_i] 66 [in_i] eCW1 ([facility]) Body weight 198.2 [lb_av] 198.2 [lb_av] eCW1 ([facility]) Diastolic blood pressure 70 mm[Hg] 70 mm[Hg] eCW1 ([facility]) Systolic blood pressure 122 mm[Hg] 122 mm[Hg] e CW1 ([facility]) Body mass index (BMI) [Ratio] 30.344 kg/m2 30.3 44 kg/m2 eCW1 ([facility]) Body height 66 [in_i] 66 [in_i] eCW1 ([facility]) Body weight 188 [lb_av] 188 [lb_av] eCW1 ([facility]) Diastolic blood pressure 62 mm[Hg] 62 mm[Hg] eCW1 ([facility]) Systolic blood pressure 112 mm[Hg] 112 mm[Hg] e CW1 ([facility]) Body mass index (BMI) [Ratio] 29.085 kg/m2 29.0 85 kg/m2 eCW1 ([facility]) Body height 66 [in_i] 66 [in_i] eCW1 ([facility]) Body weight 81.74 kg 81.74 kg eCW1 ([facility]) Body weight 180.2 [lb_av] 180.2 [lb_av] eCW1 ([facility]) Patient Treatment Plan of Care Planned Activity Planned Date Details Description Data Source (s) ferrous sulfate 325 MG Oral Tablet 02/04/2020 12:00:00 AM EST eCW1 ([facility]) ferrous sulfate 325 MG Oral Tablet 02/04/2020 12:00:00 AM EST eCW1 ([facility]) ferrous sulfate 325 MG Oral Tablet 02/04/2020 12:00:00 AM EST eCW1 ([facility])
--- OUTSIDE RECORDS SUMMARY | 2020-05-28 05:30 | CCD ---
Author Author [facility] Organization [facility] Address Unknown Phone Unavailable Care Team Providers Care Rotary Drill Operator Name Role Phone Naty Bardales Unavailable PROBLEMS Type Condition ICD9-CM Code [id number] Code Onset Dates Condition S tatus SNOMED Code Notes Problem Supervision of other normal Z34.80 Ac tive [id number] Problem Anemia affecting first O99.019 Active [id number] ALLERGIES No Known Allergies ENCOUNTERS from 1998 to 2020-03-05 Encounter Location Date Provider Diagnosis [facility] [address] [place] [address] Mar, Naty Bardales Dichorionic diamniot ic twin in second trimester O30.042 and 23 weeks gestation of Z3A.23 IMMUNIZATIONS No Information SOCIAL HISTORY Tobacco Use: [...] FOR REFERRAL No Information VITAL SIGNS Weight 198.2 lbs Mar, Height 66 in Mar, BMI 31.99 kg/m2 Mar, Blood pressure systolic 128 mm Hg Mar, Blood pressure diastolic 78 mm Hg Mar, MEDICATIONS Medication SIG (Take, Route, Frequency, Duration) Notes Start Da te End Date Status Ferrous Sulfate 325 (65 Fe) MG 1 tablet Orally Once a day for 30 day(s) Jan, Not-Taking 27-1 MG 1 tablet Orally Once a day Active PROCEDURES No Information RESULTS Component Value Reference Range URINE CULTURE Reviewed date:03/08/2020 09:25:22 Interpretation: Performing Lab:[facility] [address] [facility] [id number] , ,[place] [id number] Type and Screen (D Rh Antibody Screen) Reviewed date:03/10/2020 09:24:36 Interpretation: Performing Lab:[facility] [address] [facility] [id number] , ,[place] [id number] BLOOD TYPE A POSITIVE AB SCREEN (INDIRECT ROB)VIS NEGATIVE REASON FOR VISIT 4 WK PN Goals Section No Information Health Concerns No Information MEDICAL EQUIPMENT No Information MENTAL STATUS No Information FUNCTIONAL STATUS No Information ASSESSMENTS Encounter Date Diagnosis Assessment Notes Treatment Notes Treatm ent Clinical Notes Mar, Dichorionic diamniotic twin in second trimester (ICD-10 - O30.042) Mar, 23 weeks gestation of (ICD-10 - Z3A.23 ) PLAN OF TREATMENT Treatment Notes Test Name Order Date CBC - Complete Blood Count 2020-03-05 Type and Screen (D Rh Antibody Screen) 2020-03-05 Glucose Challenge Test 1 Hour 2020-03-05 URINE CULTURE 2020-03-05 Next Appt Details 4 Weeks Reason:COB Provider Name:Vaishali Dayanara Meneses, 2020-03 10:00:00 AM, [address] [place], [address], Follow Up:4 WeeksCOB Insurance Providers Payer Name Payer Address Payer Phone Insured Name Patient Relati onship to Insured Coverage Start Date Coverage End Date [place] [phone] [employer] PINK self
[2020-05-28] MEDS ORDERED: OXYTOCIN DRIP 30 UNITS in IV 1 EA IV SCH (05:44)
[2020-05-28] MEDS ORDERED: ACETAMINOPHEN 500 MG TAB PO PRN (05:45)
[2020-05-28] MEDS ORDERED: MEASLES,MUMPS,RUBELLA VACCINE INJ (MMR-II) (90707) SC SCH (05:45)
[2020-05-28] MEDS ORDERED: SIMETHICONE 80MG CHEW TAB PO PRN (05:45)
[2020-05-28] MEDS ORDERED: PERCOCET 5MG/325MG TAB PO PRN (05:45)
[2020-05-28] MEDS ORDERED: RHOGAM 300 MCG (1500 IU) INJ (J2790) IM SCH (05:45)
--- NOTE | 2020-05-28 05:52 | ROOPDOC ---
[facility] Report Of Operation Report of Operation DATE OF PROCEDURE: 05/28/20 PREPROCEDURE DIAGNOSES: 35+6 weeks, Di/Di twin gestation, active labor/ROM, malpresentation (twin B) POSTPROCEDURE DIAGNOSES: same PROCEDURE: Primary low transverse section SURGEON: Pedro Sanford DO FACOG CASE OPERATOR: none ANESTHESIA: Spinal ESTIMATED BLOOD LOSS: 800 mL. IV FLUIDS: 1100 mL LR URINE OUTPUT: 100 mL COMPLICATIONS: None. PREOPERATIVE ANTIBIOTICS: Ancef 2g IV x 1, Azithromycin 500mg IV. COMPLICATIONS: none DATA: Apgars Twin A 9/9 Twin B 8/9. Birthweight Twin A 3210 g, 7 lbs 1 oz. . Twin B 2640 g, 5 lbs. 13 oz. SPECIMENS: none PRIMARY INDICATION FOR : malpresentation of Twin B DESCRIPTION OF PROCEDURE: The patient was counseled on the risks, benefits, indications and alternatives of the procedure. Informed consent was obtained. She was taken to the operating room with IV running and placed on the operating table in the dorsal supine position with a leftward tilt. Regional anesthesia was found to be adequate. Sequential compression devices were placed on the lower extremities. A Bach catheter was placed under sterile conditions. She was prepared and draped in normal sterile fashion. A time out was performed per protocol. Regional anesthesia was again found to be adequate. A Pfannenstiel skin incision was made with the 10 blade. The 10 blade was used to dissect down to the level of the rectus sheath fascia. The rectus sheath pr essure was incised midline and this was extended bilaterally with Ch scissors , and manual stretch. The rectus muscle bellies were dissected off the rectus sheath fascia superiorly and inferiorly using both sharp and blunt dissection. The midline was identified. The peritoneum was identified and entered digitally. The peritoneal opening was extended with manual stretch. The Mobius retractor was placed. The vesicouterine peritoneum was dissected with Metzenbaum scissors to create the bladder flap. A low transverse uterine incision was made with the 10 blade. This was extended with manual stretch. The amniotic sac was punctured, and clear fluid was noted. Twin A delivered cephalic through the hysterotomy without difficulty. The cord was doubly clamped and cut, and the baby was handed off to awaiting care. Twin B delivered sammy breech through the hysterotomy without any difficulty with typical breech maneuvers. data shown above. The placentas were removed manually. The intrauterine cavity was cleared of all clot and debris. The hysterotomy was closed with 0 Vicryl in running locked fashion. This was reinforced with a second imbricating layer using 0 Vicryl in running fashion. Excellent hemostasis of the hysterotomy was noted. The pelvis was irrigated and the fluid suctioned. The Mobius retractor was removed. The peritoneum was closed with 3-0 Vicryl running fashion. [The rectus muscle bellies were reapproximated with interrupted stitches using 3-0 Vicryl.] The rectus muscles bellies were hemostatic. The rectus sheath fascia was closed with 0 Vicryl running fashion. The subcutaneous layer was irrigated and the fluid suctioned. Small bleeding vessels were cauterized with Bovie. Excellent hemostasis was noted. The subcutaneous layer was reapproximated with 3-0 Vicryl running fashion. Skin was closed with 3-0 Monocryl in subcuticular fashion. An Optifoam bandage was placed over the closed incision. Sponge, needle and instrument counts were correct per protocol throughout the procedure. The patient tolerated the entire procedure very well. She was transferred to the PACU in stable condition. DO NURY Lemos JONATHAN R. DO May 28, 2020 05:52
[2020-05-28] MEDS ORDERED: oxyCODONE 5MG TAB PO PRN (05:55)
[2020-05-28] MEDS ORDERED: fentaNYL 100 MCG/2 ML INJECTION (J3010) IV PRN (05:55)
[2020-05-28] MEDS ORDERED: METOCLOPRAMIDE INJ 10MG/2ML VIAL (J2765 PER 1) As Ordered ONE (06:21)
[2020-05-28] MEDS ORDERED: PROMETHAZINE INJ 25 MG/ML VIAL (J2550) IV PRN ×2 (06:30→07:40)
[2020-05-28] MEDS ORDERED: LR 1,000 ML IV ONE (07:45)
[2020-05-28 08:21] LABS: HEMATOCRIT 25.3 % (36.0-47.0); HEMOGLOBIN 7.1 g/dl (12.0-15.5); MEAN CORPUSCULAR HEMOGLOBIN 20.3 pg (27.0-33.0); MEAN CORPUSCULAR HGB CONC 28.1 g/dl (32.0-36.5); MEAN CORPUSCULAR VOLUME 72.5 fl (80.0-96.0); PLATELET COUNT, AUTOMATED 183 10^3/uL (150-450); RED BLOOD COUNT 3.49 10^6/uL (4.00-5.40); WHITE BLOOD COUNT 9.9 10^3/uL (4.0-10.0)
[2020-05-28] MEDS: DOCUSATE SODIUM 100MG CAPSULE PO SCH ×2 (09:00→21:08)
[2020-05-28] MEDS: PRENATAL VITAMINS CHEWABLE TABLET PO SCH (09:00)
[2020-05-28] MEDS: KETOROLAC 30 MG/ML 1ML VIAL IV SCH ×2 (12:27→18:19)
[2020-05-28 12:36] LABS: HEMATOCRIT 25.5 % (36.0-47.0); HEMOGLOBIN 7.2 g/dl (12.0-15.5); MEAN CORPUSCULAR HEMOGLOBIN 20.5 pg (27.0-33.0); MEAN CORPUSCULAR HGB CONC 28.2 g/dl (32.0-36.5); MEAN CORPUSCULAR VOLUME 72.6 fl (80.0-96.0); PLATELET COUNT, AUTOMATED 194 10^3/uL (150-450); RED BLOOD COUNT 3.51 10^6/uL (4.00-5.40); WHITE BLOOD COUNT 12.1 10^3/uL (4.0-10.0)
--- NOTE | 2020-05-28 16:08 | IPNPDOC ---
Text Note Date of Service The patient was seen on 05/28/20. NOTE Dizziness and decreased urine output Per morning consult Dr Sanford, transfuse 2 units PRBC Informed consent obtained. VS,Wil, I+O VS, Elíase, I+O Laboratory Tests 05/28/20 04:20 05/28/20 08:04 05/28/20 11:49 Vital Signs Date Time Temp Pulse Resp B/P (MAP) Pulse Ox O2 Delivery O2 Flow Rate FiO2 05/28/20 13:54 98.2 66 14 135/78 (97) 97 Room Air I&O- Last 24 Hours up to 6 AM 05/28/20 06:00 Output Total 800 ml Balance -800 ml Deborah Godfrey CNM May 28, 2020 16:08
[2020-05-28] MEDS ORDERED: diphenhydrAMINE 25MG CAP PO ONE (16:30)
[2020-05-28] MEDS ORDERED: ACETAMINOPHEN TAB 650MG DOSE (2X325MG) PO ONE (16:30)
[2020-05-28] MEDS: NS 1,000 ML IV SCH (16:34)
[2020-05-28] MEDS: PERCOCET 5MG/325MG TAB PO PRN (20:45)
[2020-05-28] MEDS ORDERED: LR 500 ML IV ONE (23:00)
[2020-05-29] MEDS: KETOROLAC 30 MG/ML 1ML VIAL IV SCH (00:32)
[2020-05-29 02:00] VITALS: BP 96/53
[2020-05-29] MEDS: LR 1,000 ML IV SCH ×2 (03:05→13:44)
[2020-05-29 06:00] VITALS: BP 109/56
[2020-05-29 06:29] LABS: HEMATOCRIT 23.6 % (36.0-47.0); HEMOGLOBIN 7.1 g/dl (12.0-15.5); MEAN CORPUSCULAR HEMOGLOBIN 22.9 pg (27.0-33.0); MEAN CORPUSCULAR HGB CONC 30.1 g/dl (32.0-36.5); MEAN CORPUSCULAR VOLUME 76.1 fl (80.0-96.0); PLATELET COUNT, AUTOMATED 141 10^3/uL (150-450); WHITE BLOOD COUNT 8.7 10^3/uL (4.0-10.0)
[2020-05-29] MEDS ORDERED: MOM 30ML SUSPENSION UDC PO PRN (07:20)
--- NOTE | 2020-05-29 07:25 | IPNPDOC ---
Text Note Date of Service The patient was seen on 05/29/20. NOTE PO #1 Feels better following transfusion. Reports adequate pain management. Vasquez draining clear yellow urine. VSS, afebrile, normotensive Awake, alert Fundus firm, NT Dressing dry, intact Lochia rubra scant without odor Decreased platelet count noted. PO #1 Discontinue vasquez. Slowly increase activity. Iron supplement BID. Repeat CBC and PreE panel midday VS,Fishbone, I+O VS, Fishbone, I+O Laboratory Tests 05/28/20 08:04 05/28/20 11:49 05/29/20 05:29 Vital Signs Date Time Temp Pulse Resp B/P (MAP) Pulse Ox O2 Delivery O2 Flow Rate FiO2 05/29/20 06:00 97.9 77 18 109/56 (73) 98 Room Air I&O- Last 24 Hours up to 6 AM 05/29/20 05:59 Intake Total 4736 ml Output Total 855 ml Balance 3881 ml Deborah Godfrey CNM May 29, 2020 07:25
[2020-05-29] MEDS: IBUPROFEN 800 MG TAB PO SCH ×3 (08:01→23:38)
[2020-05-29] MEDS: DOCUSATE SODIUM 100MG CAPSULE PO SCH ×2 (08:01→21:15)
[2020-05-29] MEDS: FERROUS SULFATE 325MG TAB PO SCH ×2 (08:01→21:15)
[2020-05-29] MEDS: PRENATAL VITAMINS CHEWABLE TABLET PO SCH (08:01)
[2020-05-29 10:00] VITALS: BP 125/67
[2020-05-29 13:18] LABS: ALT/SGPT 15 U/L (12-78); BILIRUBIN,TOTAL 0.2 MG/DL (0.2-1.0); CREATININE FOR GFR 0.56 MG/DL (0.55-1.30); GLOMERULAR FILTRATION RATE > 60.0 (>60); LDH LACTATE DEHYDROGENASE 280 U/L (84-246); URIC ACID 5.5 MG/DL (2.6-6.0)
[2020-05-29 14:00] VITALS: BP 117/55
[2020-05-29 14:17] LABS: HEMATOCRIT 27.6 % (36.0-47.0); HEMOGLOBIN 8.3 g/dl (12.0-15.5); MEAN CORPUSCULAR HEMOGLOBIN 22.7 pg (27.0-33.0); MEAN CORPUSCULAR HGB CONC 30.1 g/dl (32.0-36.5); MEAN CORPUSCULAR VOLUME 75.4 fl (80.0-96.0); PLATELET COUNT, AUTOMATED 169 10^3/uL (150-450); RED BLOOD COUNT 3.66 10^6/uL (4.00-5.40); WHITE BLOOD COUNT 8.2 10^3/uL (4.0-10.0)
[2020-05-29] MEDS: PERCOCET 5MG/325MG TAB PO PRN (15:53)
[2020-05-29] MEDS: NS 1,000 ML IV SCH (15:54)
[2020-05-29 17:50] VITALS: BP 142/80
[2020-05-29 22:00] VITALS: BP 133/72
[2020-05-30 02:00] VITALS: BP 127/69
[2020-05-30] MEDS: PERCOCET 5MG/325MG TAB PO PRN (05:28)
[2020-05-30 06:00] VITALS: BP 137/79
[2020-05-30] MEDS ORDERED: DOK1CAP7 PO (07:54)
[2020-05-30] MEDS ORDERED: FERR325T18 PO (07:54)
[2020-05-30] MEDS ORDERED: PERCOCET PO (07:54)
[2020-05-30] MEDS ORDERED: IBUP80TA PO (07:54)
--- NOTE | 2020-05-30 08:03 | IPNPDOC ---
Progress Note Date of Service: May 30, 2020 Day#: 2 Progress Note POD 2 SUBJECT: Rosie is a 19yo [id number] s/p uncomplicated PLTCS at 35w6d for PPROM/labor with breech presentation of twin B, doing well /post-op day # 2. PNC was complicated by anemia, and she ended up receiving 2u of PRBCs for H/H of 10/24 on presentation with subsequent normal surgical EBL. She has been ambulating, voiding spontaneously without issue and tolerating regular diet. Breast feeding and supplementing with formula without issue. Reports lochia is like a normal period. Pain well controlled. No f/c/n/v/CP/SOB/lightheadedness/dizziness. OBJECTIVE: VITAL SIGNS: Within normal limits, afebrile. Alert and oriented times three. Abdomen: Fundus firm at U-2. Soft, NTTP. Extremities: no edema of BLE, no pain with palpation of calves Labs: pre-op H/H: 7.6/26.5 post-op H/H (after 2u pRBCs): 8.3/27.6 ASSESSMENT: Rosie is a 19yo [id number] s/p uncomplicated PLTCS at 35w6d for PPROM/labor with breech presentation of twin B, doing well /post-op day # 2. PNC was complicated by anemia, and she ended up receiving 2u of PRBCs for H/H of 10/24 on presentation with subsequent normal surgical EBL. Vitals within normal limits, afebrile, hemodynamically stable with no evidence of infection. PLAN: 1. Discharge to home today. 2. Motrin and percocet prn for pain. Continue iron QD. Colace for bowel regimen. Discussed hydration and fiber in diet. 3. Encouraged breast feeding and ambulation. 4. Unsure of contraception desires, will address at 2wk incision check with Dr. Sanford (advised her to call for appt) 5. No heavy lifting, vaginal rest 6 weeks 6. Discussed return precautions at length. Vaishali Meneses MD VS, I&O, 24H, Fishbone Vital Signs/I&O Vital Signs Date Time Temp Pulse Resp B/P (MAP) Pulse Ox O2 Delivery O2 Flow Rate FiO2 05/30/20 06:25 18 Room Air 2/28/21 06:00 97.8 79 137/79 (98) 100 I&O- Last 24 Hours up to 6 AM 05/30/20 06:00 Output Total 300 ml Balance -300 ml Laboratory Data 24H LABS Laboratory Tests 2 05/29/20 12:00: Nucleated Red Blood Cells % (auto) 0.0, Glomerular Filtration Rate > 60.0, Uric Acid 5.5, Total Bilirubin 0.2, Aspartate Amino Transf (AST/SGOT) 18, Alanine Aminotransferase (ALT/SGPT) 15, Lactate Dehydrogenase 280H CBC/BMP Laboratory Tests 05/29/20 12:00 Vaishali Meneses MD May 30, 2020 08:03
[2020-05-30] MEDS: DOCUSATE SODIUM 100MG CAPSULE PO SCH (08:32)
[2020-05-30] MEDS: IBUPROFEN 800 MG TAB PO SCH (08:33)
[2020-05-30] MEDS: PRENATAL VITAMINS CHEWABLE TABLET PO SCH (08:33)
[2020-05-30] MEDS: FERROUS SULFATE 325MG TAB PO SCH (08:33)
[2020-05-30] MEDS ORDERED: INFLUENZA QUADRIVALENT PF VACCINE 0.5ML SYRINGE IM ONE (09:00)
--- NOTE | 2020-05-30 11:06 | DS.PDOC ---
Discharge Summary General Date of Admission May 28, 2020 at 04:14 Date of Discharge May 30, 2020 Discharge Summary PROCEDURES PERFORMED DURING STAY: primary low transverse section ADMITTING DIAGNOSES: 1. active labor with premature rupture of membranes 2. di-di twins with breech presentation of twin B 3. Anemia DISCHARGE DIAGNOSES: 1. active labor with premature rupture of membranes 2. di-di twins with breech presentation of twin B 3. Anemia s/p transfusion of 2 units pRBCs COMPLICATIONS/CHIEF COMPLAINT: Labor Check Twins. HISTORY OF PRESENT ILLNESS/HOSPITAL COURSE: Rosie is a 19yo [id number] s/p uncomplicated PLTCS at 35w6d for PPROM/labor with breech presentation of twin B, doing well /post-op day # 2. PNC was complicated by anemia, and she ended up receiving 2u of PRBCs for H/H of 10/24 on presentation with subsequent normal surgical EBL. She had a benign post- op/ course and at time of discharge, vitals were within normal limits, she was afebrile, hemodynamically stable with no evidence of infection. DISCHARGE MEDICATIONS: Please see below. ALLERGIES: Please see below. PHYSICAL EXAMINATION ON DISCHARGE: VITAL SIGNS: Within normal limits, afebrile. Alert and oriented times three. Abdomen: Fundus firm at U-2. Soft, NTTP. Extremities: no edema of BLE, no pain with palpation of calves LABORATORY DATA: Please see below. pre-op H/H: 7.6/26.5 post-op H/H (after 2u pRBCs): 8.3/27.6 DIET: regular DISCHARGE PLAN/INSTRUCTIONS: 1. Discharge to home today. 2. Motrin and percocet prn for pain. Continue iron QD. Colace for bowel regimen. Discussed hydration and fiber in diet. 3. Encouraged breast feeding and ambulation. 4. Unsure of contraception desires, will address at 2wk incision check with Dr. Sanford (advised her to call for appt) 5. No heavy lifting, vaginal rest 6 weeks 6. Discussed return precautions at length. DISCHARGE CONDITION: Stable TIME SPENT ON DISCHARGE: Greater than 20 minutes. Vaishali Meneses MD Vital Signs/I&Os Vital Signs Date Time Temp Pulse Resp B/P (MAP) Pulse Ox O2 Delivery O2 Flow Rate FiO2 05/30/20 06:25 18 Room Air 05/30/20 06:00 97.8 79 137/79 (98) 100 I&O- Last 24 Hours up to 6 AM 05/30/20 06:00 Output Total 300 ml Balance -300 ml Laboratory Data Labs 24H Laboratory Tests 2 05/29/20 12:00: Nucleated Red Blood Cells % (auto) 0.0, Glomerular Filtration Rate > 60.0, Uric Acid 5.5, Total Bilirubin 0.2, Aspartate Amino Transf (AST/SGOT) 18, Alanine Aminotransferase (ALT/SGPT) 15, Lactate Dehydrogenase 280H CBC/BMP Laboratory Tests 05/29/20 12:00 Discharge Medications Scheduled Docusate Sodium (Dok) 100 Mg Capsule, 100 MG PO BID Ferrous Sulfate (Ferrous Sulfate) 325 Mg Tablet, 325 MG PO DAILY Ibuprofen (Ibuprofen) 800 Mg Tablet, 800 MG PO Q8H No.137/Iron/Folic Acd ( Vitamin Tablet) 1 Each Tablet, 1 TAB PO DAILY, (Reported) Scheduled PRN Oxycodone/Acetaminophen (Oxycodone-Acetaminophen 5-325) 1 Each Tablet, 1 TAB PO Q4H PRN for MILD/MODERATE PAIN (PS 1-7) Allergies Coded Allergies: No Known Allergies (Unverified , 05/02/20) Vaishali Meneses MD May 30, 2020 11:06
== END 2020-05-30 14:20 | disposition home or self-care (01) | DRG 771 ==
LOC: M LDO 04:03 → M LDI 04:14 → M OBS 07:23
PROVIDERS: ADMIT Obstetrics & Gynecology; ATTEND Obstetrics & Gynecology
PROC: 30233N1 Transfusion of Nonautologous Red Blood Cells into Peripheral Vein, Percutaneous Approach (ICD-10-PCS; 2020-05-28)
PROC: 10D00Z1 Extraction of Products of Conception, Low, Open Approach (ICD-10-PCS; principal; 2020-05-28 04:30)
DX: O42.013 Preterm premature rupture of membranes, onset of labor within 24 hours of rupture, third trimester (principal); O60.14X0 Preterm labor third trimester with preterm delivery third trimester, not applicable or unspecified; Z37.2 Twins, both liveborn; Z3A.35 35 weeks gestation of pregnancy; O30.043 Twin pregnancy, dichorionic/diamniotic, third trimester; D50.9 Iron deficiency anemia, unspecified; O99.02 Anemia complicating childbirth; O32.1XX0 Maternal care for breech presentation, not applicable or unspecified

== ENCOUNTER → 2022-01-17 | Outpatient (REF) | payer OTHER ==
[~2022-01-17] MED LIST changes: +DOK1CAP4 PO; +FERR325T18 PO; +IBUP80TA PO; +PERCOCET PO
== END ==
LOC: M SFHCWAGY 12:53
PROVIDERS: ATTEND Specialist
DX: Z12.4 Encounter for screening for malignant neoplasm of cervix (principal); N39.0 Urinary tract infection, site not specified; R87.610 Atypical squamous cells of undetermined significance on cytologic smear of cervix (ASC-US)
CPT/HCPCS: 87088; 87186; 87624; G0123; G0463